=== PATIENT | female | born 1990 | race Caucasian/White ===

== ENCOUNTER 2022-10-23 21:16 | Emergency (ER) | payer OTHER, MEDICAID, SELFPAY ==
[2022-10-23 21:19] VITALS: BP 120/78; PULSE 83; RESP 16; TEMP 36.9; O2SAT 99; BMI 35.9
[2022-10-23 21:40] VITALS: BP 120/78; PULSE 83; RESP 16; O2SAT 99
[2022-10-23] MEDS: amoxicillin-clav 875-125 mg Tablet 1 TAB PO (23:02)
[2022-10-23] MEDS: HYDROcodone-acetaminophen 5-325 mg Tablet 1 TAB PO (23:02)
[2022-10-23 23:16] VITALS: PULSE 91; RESP 20; O2SAT 100
--- NOTE | 2022-10-24 04:47 | ED_ITS ---
HPI - Dental/Oral General: Chief complaint: Dental/Oral Stated complaint: tooth pain Time Seen by Provider: 10/23/22 21:26 Source: patient Mode of arrival: ambulatory Limitations: no limitations History of Present Illness: Patient presents to the emergency department today accompanied by significant other for evaluation treatment of dental pain to the left upper teeth. Patient reports issues for over a month in this area. She reports known issues with her teeth and states that while she was recently incarcerated did have several of her teeth addressed but, did not have this tooth pulled. Patient reports pain into the left sinus but, has not had any fevers or draining. She has been trying NSAIDs with minimal relief of pain. She does not currently have a dentist. Review of Systems General: Reports: 10 or more systems reviewed and unremarkable except in HPI and below Physical Exam Const: COMMON NORMALS: no acute distress, patient oriented x3 and alert HENMT: OTHER: Patient has multiple broken and discolored teeth. Patient's left upper gumline shows some erythema and tenderness without obvious signs of swelling on the hard palate. Eye: COMMON NORMALS: Equal, round and reactive pupils present, EOMs intact bilaterally and conjunctivae normal CONJUNCTIVA: Yes conjunctivae normal PUPIL: Yes Equal, round and reactive pupils present Neck/C-Spine: COMMON NORMALS: no JVD Lymph: LYMPHATIC: no lymphadenopathy noted Resp: COMMON NORMALS: normal respiratory effort, No retractions and No use of accessory muscles Cardio: COMMON NORMALS: no JVD and regular rate RATE: regular rate : COMMON NORMALS: Yes no CVA tenderness BLADDER/KIDNEY EXAM: Yes no CVA tenderness Back/Pelvis: COMMON NORMALS: no CVA tenderness, thoracic and lumbar spine normal to inspection and thoraco-lumbar ROM normal Extremity: COMMON NORMALS: normal to inspection, full ROM and no pedal edema Neuro: COMMON NORMALS: patient oriented x3 SENSORIUM/ORIENTATION: Yes alert Skin: COMMON NORMALS: no rashes or lesions noted and turgor normal GENERAL SKIN EXAM: no rashes or lesions noted and turgor normal Course Vital Signs: Vital signs: Vital Signs Temperature 98.4 F 10/23/22 21:19 Pulse Rate 91 10/23/22 23:16 Respiratory Rate 20 H 10/23/22 23:16 Blood Pressure 120/78 10/23/22 21:40 Pulse Oximetry 100 05/06/23 23:16 Oxygen Delivery Me thod Room Air 10/23/22 21:19 MDM - Dental/Oral Medical Decision Making Patient presents to the ER today for evaluation treatment of acute on chronic issues with dental infection. Patient was treated with Augmentin here in the ER with a prescription also provided for continued treatment. Patient was treated with lidocaine and a single dose of [place]. Patient was provided a prescription for viscous lidocaine as well as Toradol at home. Patient was given an informational handout regarding dental care at a reduced cost here in the area for her to have follow-up for more definitive management and treatment of chronic dental issues. Differential Diagnosis Likely gingival abscess, dental caries, dental abscess and fracture of tooth Discharge Plan Discharge Patient Disposition: Home Clinical Impression: Dental abscess, Fracture of tooth Condition: Stable Prescriptions: New amoxicillin-pot clavulanate 875-125 mg tablet 1 tab PO BID 10 Days Qty: 20 0RF Lidocaine Viscous 2 % solution 10 ml mucous membrane TID PRN (Reason: pain) Qty: 100 0RF ketorolac 10 mg tablet 10 mg PO Q8H PRN (Reason: pain) Qty: 30 0RF Discharge Orders: Discharge ED (Routine); Ordered 10/23/22 Ordered By: Carlee Palacios Referrals: Venus Ng FNP [Family Provider] - Discharge Diet: Usual diet Discharge Activity: Resume usual activity Patient Instructions: Dental Caries (Cavities), Dental Abscess (ED) Activity Restrictions/Additional Instructions: We are starting you on antibiotics and topical medication to help with your pain. Have given you a couple of resources for you to look into for dental care as unfortunately think recurrent dental infections and pain will occur until you are able to complete your dental treatment for your chronic dental issues. Coding Level of Care Code ED [employer] for Lauryn Buckner
--- NOTE | 2022-11-04 10:29 | DCPLANNER ---
TCM called patient due to no primary care physician - no answer at this time.
== END 2022-10-23 23:17 | disposition home or self-care (01) ==
PROVIDERS: Emergency Provider Physician Assistant; Family Provider Nurse Practitioner Family
DX: S02.5XXA Fracture of tooth (traumatic), initial encounter for closed fracture (principal); K04.7 Periapical abscess without sinus; X58.XXXA Exposure to other specified factors, initial encounter
CPT/HCPCS: 99283